=== PATIENT | male | born 1965 | race African-American/Black ===

== ENCOUNTER 2019-08-07 17:58 | Emergency (ER) | payer BC ==
[~2019-08-07] VITALS: Ht 175.3 cm; Wt 85.0 kg
[~2019-08-07 17:58] MED LIST: ANTIBIOTIC
[2019-08-07] MEDS ORDERED: KETOROLAC 60MG/2ML VIAL IM ONE (18:45)
[2019-08-07] MEDS ORDERED: HYDROCODONE/ACETAMINOPHEN 5/325MG TABLET PO ONE ×2 (18:45→21:45)
[2019-08-07 21:51] VITALS: BP 112/68
== END 2019-08-07 22:06 | disposition home or self-care (01) ==
LOC: ER 18:36
DX: S82.142A Displaced bicondylar fracture of left tibia, initial encounter for closed fracture (principal); S92.911A Unspecified fracture of right toe(s), initial encounter for closed fracture; F12.10 Cannabis abuse, uncomplicated; Z88.5 Allergy status to narcotic agent; V29.9XXA Motorcycle rider (driver) (passenger) injured in unspecified traffic accident, initial encounter; Y93.I9 Activity, other involving external motion; Y92.89 Other specified places as the place of occurrence of the external cause; Y99.8 Other external cause status
CPT/HCPCS: 73560; 73630; 73700; 96372; 99284; J1885; L1830; 29505

== ENCOUNTER 2022-01-19 10:59 | Emergency (ER) | payer BC, OTHER ==
[~2022-01-19] VITALS: Ht 177.8 cm; Wt 100.0 kg
[2022-01-19 11:18] VITALS: BP 126/71
[2022-01-19] MEDS ORDERED: LIDOCAINE HCL/EPINEPHRINE 1%-EPI 1:100,000 20 ML VIAL INFIL ONE (11:30)
[2022-01-19] MEDS ORDERED: BACITRACIN ZINC OINT UDPKT TOP ONE (11:30)
[2022-01-19] MEDS ORDERED: AMOX-424 MT (14:21)
== END 2022-01-19 15:27 | disposition home or self-care (01) ==
LOC: ER 13:10
DX: S61.011A Laceration without foreign body of right thumb without damage to nail, initial encounter (principal); S61.210A Laceration without foreign body of right index finger without damage to nail, initial encounter; W26.8XXA Contact with other sharp object(s), not elsewhere classified, initial encounter; Y93.89 Activity, other specified; Y92.89 Other specified places as the place of occurrence of the external cause; Y99.8 Other external cause status; F12.10 Cannabis abuse, uncomplicated; Z88.5 Allergy status to narcotic agent
CPT/HCPCS: 12002; 99283; A4217; J3490; Z7610; 99282

== ENCOUNTER 2022-01-21 09:37 | Emergency (ER) | payer BC ==
[~2022-01-21] VITALS: Ht 172.7 cm; Wt 90.0 kg
[~2022-01-21 09:37] MED LIST changes: +AMOX-424 MT
[2022-01-21] MEDS ORDERED: CEFP200T13 MT (10:14)
[2022-01-21] MEDS ORDERED: DOXY100C5 MT (10:14)
[2022-01-21] MEDS ORDERED: IBUPROFEN 600MG TABLET PO ONE (10:15)
[2022-01-21] MEDS ORDERED: NAPR-1176 MT (10:15)
[2022-01-21 10:41] VITALS: BP 152/78
== END 2022-01-21 10:42 | disposition home or self-care (01) ==
LOC: ER 09:37
DX: S61.411D Laceration without foreign body of right hand, subsequent encounter (principal); X58.XXXD Exposure to other specified factors, subsequent encounter; Z48.00 Encounter for change or removal of nonsurgical wound dressing
CPT/HCPCS: 99283

== ENCOUNTER 2022-02-03 15:58 | Emergency (ER) | payer BC ==
[~2022-02-03] VITALS: Ht 175.3 cm; Wt 101.0 kg
[~2022-02-03 15:58] MED LIST changes: +CEFP200T13 MT; +DOXY100C5 MT; +NAPR-1176 MT
[2022-02-03 16:01] VITALS: BP 145/78
== END 2022-02-03 17:56 | disposition home or self-care (01) ==
LOC: ER 15:58
DX: Z48.02 Encounter for removal of sutures (principal)
CPT/HCPCS: 99281